=== PATIENT | female | born 2000 ===

== ENCOUNTER 2019-06-20 13:58 | Emergency (ER) | payer BC ==
[2019-06-20 14:09] VITALS: BP 112/74
--- NOTE | 2019-06-20 16:17 | UC ---
Skin Complaint HPI - HPI Summary HPI Summary: 19 y/o female presents to the urgent care c/o a tender red rash around a superficial laceration she had about 1 week ago on her RLL. Pt reports she jumped over her patio's fence and scratched her lateral side of her RLL. Superficial laceration was healing until last night when she noticed the swelling and red rash. This morning it is tender to touch, 2/10 and warm, no drainage. Pt is UTD w/ all vaccines for her age and FROM of her R leg. Pt denies fever, chills, calf pain, SOB, chest pain, abdominal pain, N/V/D. - History of Current Complaint Chief Complaint: UCSkin Time Seen by Provider: 06/20/19 16:16 Stated Complaint: SKIN COMPLAINT Hx Obtained From: Patient Onset/Duration: Gradual Onset, Lasting Weeks - RLL w/ a superficial laceration about a week ago that is getting red and tender since last night, Still Present , Worse Since - ;ast night w/ a red rash and swelling and tender to touch Skin Exposure Onset/Duration: Days Ago - 1 day or red rash Timing: Constant Onset Severity: Mild Current Severity: Mild Pain Intensity: 0 Pain Scale Used: 0-10 Numeric Location: Discrete - lateral side of distal RLL Character: Swelling, Redness, Painful Aggravating Factor(s): Touch Alleviating Factor(s): Nothing Associated Signs & Symptoms: Positive: Rash - RLL w/ a superficial laceration about a week ago that is getting red and tender since last night, Tenderness. Negative: Fever, Hoarseness, Throat Tightening, Drainage Related History: Other: - superficial laceration about 1 week ago - Allergy/Home Medications Allergies/Adverse Reactions: Allergies Allergy/AdvReac Type Severity Reaction Status Date / Time No Known Allergies Allergy Verified 06/20/19 14:09 Home Medications: Home Medications Bupropion XL* [Wellbutrin XL *] 150 mg PO DAILY 06/20/19 [History Confirmed ] Iron,Carb/Vit C/Vit B12/Folic [Iron 100 Plus Tablet] 1 tab PO 06/20/19 [History] lamoTRIgine [Lamictal] 150 mg PO 06/20/19 [History] PMH/Surg Hx/FS Hx/Imm Hx Previously Healthy: Yes - Pt denies PMHX - Surgical History Surgical History: None - Family History Known Family History: Positive: None - Pt denies PMHX - Social History Occupation: Student Lives: With Family Alcohol Use: Occasionally Substance Use Type: None Smoking Status (MU): Never Smoked Tobacco - Immunization History Hx Tetanus, Diphtheria Vaccination: Yes Vaccination Up to Date: Yes Review of Systems All Other Systems Reviewed And Are Negative: Yes Constitutional: Positive: Negative Skin: Positive: Rash - RLL w/ a superficial laceration about a week ago that is getting red and tender since last night Eyes: Positive: Negative ENT: Positive: Negative Respiratory: Positive: Negative Cardiovascular: Positive: Negative Gastrointestinal: Positive: Negative Genitourinary: Positive: Negative, Vaginal/Penile Itching Neurovascular: Positive: Negative Musculoskeletal: Positive: Other: - RLL pain Neurological: Positive: Negative Psychological: Positive: Negative Is Patient Immunocompromised?: No Physical Exam - Summary Physical Exam Summary: Vital Signs Reviewed: Yes General: well appearing, well nourished female in no acute apparent pain distress, sitting comfortably on examining table Eye Exam: Normal Eyes: Positive: Conjunctiva Clear - PERRLA< EOMI, fundi grossly normal ENT: Positive: Normal ENT inspection, Hearing grossly normal, Pharynx normal, TMs normal Neck: Positive: Supple, Nontender, No Lymphadenopathy Respiratory: Positive: Chest non-tender, Lungs clear, Normal breath sounds, No respiratory distress Cardiovascular: Positive: RRR, No Murmur, Pulses Normal, Brisk Capillary Refill Abdomen Description: Positive: Nontender, No Organomegaly, Soft. Negative: CVA Tenderness (R), CVA Tenderness (L) Bowel Sounds: Positive: Present Musculoskeletal: Positive: Strength Intact, ROM Intact, No Edema Neurological: Positive: Alert, Muscle Tone Normal Psychological Exam: Normal Skin: Positive: Positive distal RLL w/ erythematous patch w/ indistinct borders surrounding a superficial linear closed laceration, warm and tender to palpation , no drainage observed. FROM of R lower extremity, pulses WNL, capillary refill brisk, sensation WNL. Triage Information Reviewed: Yes Vital Signs: Initial Vital Signs Temp 98.3 F 06/20/19 14:05 Pulse 60 06/20/19 14:05 Resp 18 06/20/19 14:05 BP 112/74 06/20/19 14:05 Pulse Ox 100 06/20/19 14:05 Course/Dx - Course Course Of Treatment: 19 y/o female presents to the urgent care c/o a tender red rash around a superficial laceration she had about 1 week ago on her RLL. Pt reports she jumped over her patio's fence and scratched her lateral side of her RLL. Superficial laceration was healing until last night when she noticed the swelling and red rash. This morning it is tender to touch, 2/10 and warm, no drainage. Pt is UTD w/ all vaccines for her age and FROM of her R leg. Pt denies fever, chills, calf pain, SOB, chest pain, abdominal pain, N/V/D. Hx obtained. Pt w/ distal RLL w/ erythematous patch w/ indistinct borders surrounding a superficial linear closed laceration, warm and tender to palpation , no drainage observed. FROM of R lower extremity, pulses WNL, capillary refill brisk, sensation WNL on examination. Dx Cellulitis of RT lower leg s/p superficial laceration. Pt Rx Keflex PO, and topical Bacitracin ointment. Rash demarcated with a skin marker and Advised if rash doubles in size and if she develops a fever to go to the ER for further treatment. D/C instruction explained. Pt understood and agreed w/ plan of care. - Differential Diagnoses - Skin Complaint Differential Diagnoses: Abscess, Cellulitis, Contact Dermatitis, Local Allergic Reaction, MRSA - Diagnoses Provider Diagnosis: Cellulitis of right lower leg Discharge ED - Sign-Out/Discharge Documenting (check all that apply): Patient Departure - d/C home All imaging exams completed and their final reports reviewed: No Studies - Discharge Plan Condition: Stable Disposition: HOME Prescriptions: Bacitracin OINTMENT* 1 applic TOPICAL BID #1 tube Cephalexin CAP* [Keflex CAP*] 500 mg PO TID #21 cap Patient Education Materials: Cellulitis (ED) Referrals: [facility] [place] [facility] [Outside] - 2 Days Additional Instructions: 1-Please take full course of Antibiotic. take yogurts w/ probiotics or culturelle to protect your GI system 2- If redness and swelling doubles in size after 48 hrs of taking antibiotic and fever develops please go to the ER immediately. 3-Avoid standing for long periods of time or flexing your leg, keep it elevated. 4-Please F/u with your PCP in 3 days if not improvement of symptoms for further evaluation and treatment. - Billing Disposition and Condition Condition: STABLE Disposition: Home
== END 2019-06-20 16:50 | disposition home or self-care (01) ==
LOC: UCEAST 13:58
DX: L03.115 Cellulitis of right lower limb (principal)
CPT/HCPCS: 99202; G0463